=== PATIENT | female | born 2000 | race African-American/Black ===

== ENCOUNTER 2023-04-20 21:09 | Emergency (ER) | payer MEDICAID ==
[~2023-04-20] VITALS: Ht 154.9 cm; Wt 96.0 kg
[2023-04-20 21:22] VITALS: BP 123/71; RESP 16; O2SAT 99
[2023-04-20 21:23] VITALS: PULSE 62
[2023-04-20] MEDS ORDERED: ACETAMINOPHEN 325MG TABLET PO ONE (22:15)
[2023-04-20 22:16] VITALS: TEMP 98.2
== END 2023-04-20 23:23 | disposition home or self-care (01) ==
LOC: ER 23:21
DX: O26.891 Other specified pregnancy related conditions, first trimester (principal); D64.9 Anemia, unspecified; Z3A.14 14 weeks gestation of pregnancy
CPT/HCPCS: 76805; 99284